=== PATIENT | male | born 1955 | race Caucasian/White ===

== ENCOUNTER 2018-01-25 13:36 | Outpatient (CLI) | payer OTHER ==
--- NOTE | 2018-01-25 15:21 | ULT ---
DOPPLER VENOUS ULTRASOUND OF THE LEFT LOWER EXTREMITY SOFT TISSUE ULTRASOUND OF LEFT FORELEG: Date: 01/25/18 INDICATION: Rupture of the gastrocnemius tendon. COMPARISON: Radiographs of left foreleg dated 01/24/18. TECHNIQUE: Color flow Doppler, spectral waveform analysis of pulsed Doppler, and llanes-scale imaging with david judie and augmentation, were used to evaluate the bilateral common femoral, femoral, popliteal, shellfish processing laborer ior tibial, and superficial femoral, veins; and the proximal portions of the profunda femoral and gre ater saphenous, veins. Additional ultrasound with color Doppler and Llanes scale ultrasound images were obtained of the soft t issues of the posterior compartment of the left foreleg in the region so pain. FINDINGS: There is normal compression, flow, and augmentation seen within the deep venous structures of the lef t lower extremity. There is a 3.8 x 2.3 x 6.1 cm nonvascular collection seen between the medial gastrocnemius and soleus muscle of the mid to proximal calf consistent with hematoma. The is partial tear involving portions of the medial gastrocnemius musculature near the musculotendinous junction consistent with a Grade I I muscle strain. The extent of the hematoma is slightly more pronounced than what would be expected f or a Grade II strain and may reflect components of a plantaris rupture. The Achilles tendon is intact along its entire course. IMPRESSION: 1. No evidence of deep venous thrombosis of the left lower extremity. 2. Large intramuscular hematoma between the left medial gastrocnemius and left soleus musculature. T here is a Grade II strain involving the mid to proximal medial gastrocnemius. The extent of the hemat juli is slightly more pronounced than expected for medial gastrocnemius Grade II strain. A plantaris r upture could produce a similar finding. 3. Left Achilles tendon is intact. POS: [facility]
== END 2018-01-25 13:37 | disposition home or self-care (01) ==
LOC: ULT 13:36
PROVIDERS: ATTEND Family Medicine
DX: S86.112A Strain of other muscle(s) and tendon(s) of posterior muscle group at lower leg level, left leg, initial encounter (principal); S80.12XA Contusion of left lower leg, initial encounter
CPT/HCPCS: 76999

== ENCOUNTER 2019-07-23 22:46 | Emergency (ER) | payer OTHER | END 2019-07-24 00:43 | disposition home or self-care (01) | LOC: ERS 22:46 | DX: L03.113 Cellulitis of right upper limb (principal) | CPT/HCPCS: 10060 ==

== ENCOUNTER 2020-06-10 12:49 | Outpatient (CLI) | payer OTHER | END 2020-06-10 12:50 | disposition home or self-care (01) | LOC: DTY/OP 12:49 | PROVIDERS: ATTEND Family Medicine | DX: E11.9 Type 2 diabetes mellitus without complications (principal) | CPT/HCPCS: 97802 ==

== ENCOUNTER 2023-04-06 09:56 | Outpatient (CLI) | payer MEDICARE | END 2023-04-06 09:57 | disposition home or self-care (01) | LOC: BICRAD 09:56 | PROVIDERS: ATTEND Student in an Organized Health Care Education/Training Program | DX: M79.662 Pain in left lower leg (principal) ==